=== PATIENT | female | born 1990 | race Hispanic/Latino ===

== ENCOUNTER 2018-07-11 00:27 | Emergency (ER) | payer OTHER ==
[~2018-07-11] VITALS: Ht 154.9 cm; Wt 70.3 kg
--- OUTSIDE RECORDS SUMMARY | 2018-07-11 00:30 | XMS REPORT | Continuity of Care Document ---
Author Author [facility] Organization Interface Address Unknown Phone Unavailable Problems Problem Status Onset Date Classification Date Reported Comments Source Encounter to establish care Active Diagnosis 07/18/2016 Enayet Rahim BMI 35.0-35.9,adult Active Diagnosis 07/18/2016 Enayet Rahim Medications Medication Details Route Status Patient Instructions Ordering Provider Order Date Source Contrave 1 tablet Orally Active 8-90 MG Orally Twice a day Yash 07/16/2016 Enayet Rahim Allergies, Adverse Reactions, Alerts Substance Category Reaction Severity Reaction type Status Date Reported Comments Source N.K.D.A. Adverse Reaction Info Not Available Adverse Reaction Active 07/16/2016 Enayet Rahim Immunizations Immunization Date Given Site Status Last Updated Comments Source Results Order Name Results Value Reference Range Date Interpretation Comments Source Vital Signs Vital Sign Value Date Comments Source Weight 180 07/16/2016 Enayet Rahim Height 60 07/16/2016 Enayet Rahim Temperature Oral (F) 98.9 F 07/16/2016 Enayet Rahim Diastolic (mm Hg) 84 07/16/2016 Enayet Rahim Systolic (mm Hg) 113 07/16/2016 Enayet Rahim Encounters Location Location Details Encounter Type Encounter Number Reason For Visit Attending Provider ADM Date DC Date Status Source Outpatient [id number] BRIANNA CORTES 06/27/2016 Active [facility] Outpatient [id number] BRIANNA CORTES 07/01/2016 Active [facility] Outpatient [id number] NURSE VISIT 08/28/2016 Active [facility] Outpatient [id number] NURSE VISIT 09/10/2016 Active [facility] Outpatient [id number] BRIANNA CORTES 09/20/2016 Active [facility] Procedures Procedure Code Date Perfomer Comments Source
--- OUTSIDE RECORDS SUMMARY | 2018-07-11 00:30 | XMS REPORT ---
Author Author Americo Berrios Organization [employer] Address Unknown Phone Unavailable Care Team Providers Care Pricing Supervisor Name Role Phone Americo Berrios CP Unavailable Allergies, Adverse Reactions, Alerts Substance Reaction Event Type N.K.D.A. Info Not Available Non Drug Allergy Problems Problem Type Condition Code Onset Dates Condition Status Assessment Encounter to establish care Z76.89 Active Assessment BMI 35.0-35.9,adult Z68.35 Active Problem BMI 35.0-35.9,adult Z68.35 Active Medications Medication Code System Code Instructions Start Date End Date Status Dosage Saige [facility] [address]-65 8-90 MG Orally Twice a day July 16, 2016 August 15, 2016 Active 1 tablet Vital Signs Date/Time: July 16, 2016 BMI 35.15 Index Weight 180 lbs Height 60 in Temperature 98.9 F Blood Pressure Diastolic 84 mm Hg Blood Pressure Systolic 113 mm Hg Results No Known Results Summary Purpose [employer] Submission
== END 2018-07-11 01:04 | disposition home or self-care (01) ==
LOC: ER 00:27
DX: J02.0 Streptococcal pharyngitis (principal)
CPT/HCPCS: 99282